=== PATIENT | female | born 1935 | race Asian ===

== ENCOUNTER → 2020-04-10 | Outpatient (CLI) | payer MEDICARE, OTHER ==
--- NOTE | 2020-04-14 10:27 | RAD ---
DATE: 04/10/2020 12:39 PM EXAM: MAMMO MADELIN SCREENING BILATERAL HISTORY: Screening COMPARISON: 12/03/2018 Bilateral CC and MLO views of the breasts were performed. Bilateral breast tomosynthesis was performed in CC and MLO projections. This study was interpreted with the benefit of Computerized Aided Detection (CAD). FINDINGS: Breast Density: HETERO The breast parenchyma Is heterogeneously dense, which could reduce sensitivity of mammography. Breast parenchyma level C No suspicious masses, microcalcifications or architectural distortion is present to suggest malignancy in either breast. The visualized axillae are unremarkable. IMPRESSION: No mammographic evidence of malignancy. BI-RADS CATEGORY: 1 NEGATIVE RECOMMENDED FOLLOW-UP: 12M 12 MONTH FOLLOW-UP Annual screening mammography is recommended, unless clinically indicated sooner based on symptoms or change in physical exam. PQRS compliance statement: Patient information was entered into a reminder system with a target due date for the next mammogram. Mammography is a sensitive method for finding small breast cancers, but it does not detect them all and is not a substitute for careful clinical examination. A negative mammogram does not negate a clinically suspicious finding and should not result in delay in biopsying a clinically suspicious abnormality. "Our facility is accredited by the [employer] Mammography Program."
== END ==
LOC: MAMMO 10:42
PROVIDERS: ATTEND Family Medicine
DX: Z12.31 Encounter for screening mammogram for malignant neoplasm of breast (principal)
CPT/HCPCS: 77063; 77067

== ENCOUNTER 2020-09-22 14:54 | Emergency (ER) | payer MEDICARE, OTHER ==
[~2020-09-22] VITALS: Ht 152.4 cm; Wt 50.0 kg
[2020-09-22 15:38] LABS: BASO % 1 % (0-3); EOS # 0.1 x10^3/uL (0.0-0.7); EOS % 1 % (0-3); HEMATOCRIT 41.1 % (36.0-47.0); HEMOGLOBIN 13.9 g/dL (12.0-15.5); LYMPH # 1.8 x10^3/uL (1.0-4.8); LYMPH % 23 % (24-48); MEAN CORPUSCULAR HEMOGLOBIN 34 pg (25-35); MEAN CORPUSCULAR HGB CONC 34 g/dL (31-37); MEAN CORPUSCULAR VOLUME 100 fL (79-100); MONO # 0.6 x10^3/uL (0.0-1.1); MONO % 8 % (0-9); NEUT # 5.1 x10^3uL (1.8-7.7); NEUT % 67 % (31-73); PLATELET COUNT 176 x10^3/uL (140-400); RED BLOOD COUNT 4.09 x10^6/uL (3.50-5.40); RED CELL DISTRIBUTION WIDTH 14.9 % (11.5-14.5); WHITE BLOOD COUNT 7.6 x10^3/uL (4.0-11.0)
[2020-09-22 15:54] LABS: CALCIUM 8.8 mg/dL (8.5-10.1); CREATININE 0.7 mg/dL (0.6-1.0); GFR 80.1; POTASSIUM 4.1 mmol/L (3.5-5.1)
--- NOTE | 2020-09-22 15:59 | RAD ---
EXAM: Chest, single view. HISTORY: Headache. COMPARISON: None. FINDINGS: A frontal view of the chest is obtained. There is no infiltrate, pleural effusion or pneumo thorax. There is a prominent cardiac silhouette. There is suspected bilateral lower lobe atelectasis or chronic interstitial changes. IMPRESSION: No acute pulmonary finding. Electronically signed by: Amaris Nicolas MD (09/22/2020 3:57 PM) [id number]
[2020-09-22 16:03] LABS: ALBUMIN 3.9 g/dL (3.4-5.0); ALBUMIN/GLOBULIN RATIO 1.3 (1.0-1.7); MAGNESIUM 2.2 mg/dL (1.8-2.4); TOTAL BILIRUBIN 0.5 mg/dL (0.2-1.0); TOTAL PROTEIN 6.9 g/dL (6.4-8.2)
--- NOTE | 2020-09-22 16:04 | RAD ---
EXAM: Head CT without contrast. HISTORY: Headache. TECHNIQUE: Computed tomographic images of the head were obtained without contrast. *One or more of the following individualized dose reduction techniques were utilized for this examina tion: 1. Automated exposure control. 2. Adjustment of the mA and/or kV according to patient size. 3. Use of iterative reconstruction technique. COMPARISON: None. FINDINGS: There is no acute or subacute extra-axial or intraparenchymal hemorrhage. There is no mass effect or midline shift. There is no hydrocephalus. There are areas of decreased attenuation within the cerebral white matter, nonspecific and likely rel ated to chronic small vessel disease. There is a fixation plate and along the left orbital rim. The mastoid air cells are clear. There is n o suspicious calvarial lesion. There is suspected bone demineralization. IMPRESSION: No acute intracranial findings. Electronically signed by: Amaris Nicolas MD (09/22/2020 4:01 PM) [id number]
--- NOTE | 2020-09-22 16:33 | PHYS DOC ---
Past History Past Medical History: Anxiety, Arthritis, Diabetes (BISHOP DUNCAN [employer] JOINTER) Past Surgical History: Hip Replacement, Other (BISHOP DUNCAN APRN) Adult General Chief Complaint Chief Complaint: HEADACHE HPI HPI Patient is a 84-year-old female patient with history of anxiety, diabetes type 2 diet-controlled, rheumatoid arthritis, who presents to the ED today complaining of 8 out of 10 left-sided headaches with blurry vision, tingling to her feet and fingers symptoms have been going on for "months". Patient denies any nausea, vomiting. Denies any fever. Denies any chest pain or shortness of breath. She states she has been seen by her own primary care doctor who did right brain MRI which was negative. She states x-rays were also done which were negative. She states she was told that maybe she has ear problems. She states she has continued to have headaches. Patient denies anything specifically exacerbating or relieving her headaches. (BISHOP DUNCAN [employer] JO[employer]) Review of Systems Review of Systems Constitutional: Denies fever or chills [] Eyes: Denies change in visual acuity, redness, or eye pain [] HENT: Denies nasal congestion or sore throat [] Respiratory: Denies cough or shortness of breath [] Cardiovascular: No additional information not addressed in HPI [] GI: Denies abdominal pain, nausea, vomiting, bloody stools or diarrhea [] : Denies dysuria or hematuria [] Musculoskeletal: Denies back pain or joint pain [] Integument: Denies rash or skin lesions [] Neurologic: Reports headaches, tingling to hands and fingers, focal weakness or sensory changes [] All other systems were reviewed and found to be within normal limits, except as documented in this note. (BISHOP DUNCAN [employer]) Allergies Allergies Allergies Coded Allergies Type Severity Reaction Last Updated Verified Penicillins Allergy Unknown 09/22/20 Yes (BISHOP DUNCAN APRN) Physical Exam Physical Exam Constitutional: Well developed, well nourished, no acute distress, non-toxic appearance. [] HENT: Normocephalic, atraumatic, bilateral external ears normal, oropharynx moist, no oral exudates, nose normal. Hard on hearing. Eyes: PERRLA, EOMI, conjunctiva normal, no discharge. [] Neck: Normal range of motion, no tenderness, supple, no stridor. [] Cardiovascular:Heart rate regular rhythm, no murmur [] Lungs & Thorax: Bilateral breath sounds clear to auscultation [] Abdomen: Bowel sounds normal, soft, no tenderness, no masses, no pulsatile masses. [] Skin: Warm, dry, no erythema, no rash. [] Back: No tenderness, no CVA tenderness. [] Extremities: No tenderness, no cyanosis, no clubbing, ROM intact, no edema. [] Neurologic: Alert and oriented X 3, normal motor function, normal sensory function, no focal deficits noted. Cranial nerves II through XII intact Psychologic: Affect normal, judgement normal, mood normal. [] (BISHOP DUNCAN [employer]) Current Patient Data Vital Signs Vital Signs Date Time Temp Pulse Resp B/P (MAP) Pulse Ox O2 Delivery O2 Flow Rate FiO2 09/22/20 15:35 65 17 158/72 (100) 98 Room Air 09/22/20 15:01 98.6 Lab Results Laboratory Tests Test 09/22/20 15:26 09/22/20 15:38 White Blood Count 7.6 x10^3/uL (4.0-11.0) Red Blood Count 4.09 x10^6/uL (3.50-5.40) Hemoglobin 13.9 g/dL (12.0-15.5) Hematocrit 41.1 % (36.0-47.0) Mean Corpuscular Volume 100 fL (79-100) Mean Corpuscular Hemoglobin 34 pg (25-35) Mean Corpuscular Hemoglobin Concent 34 g/dL (31-37) Red Cell Distribution Width 14.9 % (11.5-14.5) H Platelet Count 176 x10^3/uL (140-400) Neutrophils (%) (Auto) 67 % (31-73) Lymphocytes (%) (Auto) 23 % (24-48) L Monocytes (%) (Auto) 8 % (0-9) Eosinophils (%) (Auto) 1 % (0-3) Basophils (%) (Auto) 1 % (0-3) Neutrophils # (Auto) 5.1 x10^3uL (1.8-7.7) Lymphocytes # (Auto) 1.8 x10^3/uL (1.0-4.8) Monocytes # (Auto) 0.6 x10^3/uL (0.0-1.1) Eosinophils # (Auto) 0.1 x10^3/uL (0.0-0.7) Basophils # (Auto) 0.0 x10^3/uL (0.0-0.2) Prothrombin Time 9.6 SEC (9.4-11.4) Prothrombin Time INR 0.9 (0.9-1.1) Activated Partial Thromboplast Time 23 SEC (23-33) Sodium Level 141 mmol/L (136-145) Potassium Level 4.1 mmol/L (3.5-5.1) Chloride Level 104 mmol/L (98-107) Carbon Dioxide Level 28 mmol/L (21-32) Anion Gap 9 (6-14) Blood Urea Nitrogen 11 mg/dL (7-20) Creatinine 0.7 mg/dL (0.6-1.0) Estimated GFR (Cockcroft-Gault) 80.1 BUN/Creatinine Ratio 16 (6-20) Glucose Level 86 mg/dL (70-99) Calcium Level 8.8 mg/dL (8.5-10.1) Magnesium Level 2.2 mg/dL (1.8-2.4) Total Bilirubin 0.5 mg/dL (0.2-1.0) Aspartate Amino Transferase (AST) 25 U/L (15-37) Alanine Aminotransferase (ALT) 30 U/L (14-59) Alkaline Phosphatase 53 U/L (46-116) Creatine Kinase 52 U/L (26-192) Creatine Kinase MB (Mass) 0.8 ng/mL (0.0-3.6) Creatine Kinase MB Relative Index 1.5 % (0-4) Troponin I Quantitative < 0.017 ng/mL (0-0.055) MY-Mtn-N-Type Natriuretic Peptide 135 pg/mL (0-449) Total Protein 6.9 g/dL (6.4-8.2) Albumin 3.9 g/dL (3.4-5.0) Albumin/Globulin Ratio 1.3 (1.0-1.7) Glucose (Fingerstick) 89 mg/dL (70-99) (BISHOP DUNCAN APRN) EKG EKG [address] Mccloud sinus rhythm heart rate 64 no STEMI [] (BISHOP DUNCAN APRN) Radiology/Procedures Radiology/Procedures []PROCEDURE: CT HEAD WO CONTRAST EXAM: Head CT without contrast. HISTORY: Headache. TECHNIQUE: Computed tomographic images of the head were obtained without contrast. *One or more of the following individualized dose reduction techniques were utilized for this examination: 1. Automated exposure control. 2. Adjustment of the mA and/or kV according to patient size. 3. Use of iterative reconstruction technique. COMPARISON: None. FINDINGS: There is no acute or subacute extra-axial or intraparenchymal hemorrhage. There is no mass effect or midline shift. There is no hydrocephalus. There are areas of decreased attenuation within the cerebral white matter, nonspecific and likely related to chronic small vessel disease. There is a fixation plate and along the left orbital rim. The mastoid air cells are clear. There is no suspicious calvarial lesion. There is suspected bone demineralization. IMPRESSION: No acute intracranial findings. Electronically signed by: Amaris Reynolds MD (09/22/2020 4:01 PM) [id number] DICTATED AND SIGNED BY: AMARIS REYNOLDS MD DATE: 09/22/20 1600 CC: BISHOP DUNCAN APRN; JANEE ALBRIGHT ~MTH0 0 PROCEDURE: PORTABLE CHEST 1V EXAM: Chest, single view. HISTORY: Headache. COMPARISON: None. FINDINGS: A frontal view of the chest is obtained. There is no infiltrate, pleural effusion or pneumothorax. There is a prominent cardiac silhouette. There is suspected bilateral lower lobe atelectasis or chronic interstitial changes. IMPRESSION: No acute pulmonary finding. Electronically signed by: Amaris Reynolds MD (09/22/2020 3:57 PM) [id number] DICTATED AND SIGNED BY: AMARIS REYNOLDS MD DATE: 09/22/20 1556 CC: EMERGENCY,DEPARTMENT; BISHOP DUNCAN APRN; JANEE ALBRIGHT ~MTH0 0 (BISHOP DUNCAN APRN) Heart Score C/O Chest Pain: N/A Risk Factors: Risk Factors: DM, Current or recent (<one month) smoker, HTN, HLP, family history of CAD, obesity. Risk Scores: Risk Factors: DM, Current or recent (<one month) smoker, HTN, HLP, family history of CAD, obesity. (BISHOP DUNCAN APRN) Course & Med Decision Making Course & Med Decision Making Pertinent Labs and Imaging studies reviewed. (See chart for details) This is a 84-year-old female patient presenting to the ED today complaining of left-sided headaches intermittently for months. Also complaining of tingling to her hands and feet as well as blood prevention for months. Patient reports being seen by the PCP, MRI done of the brain which was negative. Also states they did a couple x-rays which were negative. She states she was told she has an ear problem. She states she has continued to have the symptoms. Stroke scale is negative CT of the head, chest x-ray, EKG negative. Labs are negative for any acute findings. Blood pressure 158/72. Discharge home, provided neurologist and ENT for follow-up. (BISHOP DUNCAN APRN) Dragon Disclaimer Dragon Disclaimer This electronic medical record was generated, in whole or in part, using a voice recognition dictation system. (BISHOP DUNCAN APRN) Departure Departure: Impression: Primary Impression: Chronic headaches Disposition: HOME / SELF CARE / HOMELESS Condition: STABLE Referrals: JANEE ALBRIHGT (PCP) follow up next week Patient Instructions: Headache, FAQs Additional Instructions: You were evaluated in the emergency room for headache. Your CT of the head was negative for any acute findings. Your chest x-ray is negative, your labs are negative for any acute findings. Your EKG is normal. Please follow-up with your primary care doctor as well as the provided ENT and neurologist. Take Tylenol as needed for pain. Dr. Clifford Neurologist [address], [place] [address] Dr. Chika Bravo ENT [address], [place] [address] Attending Signature Attending Signature I have reviewed the PA/TIRE MAN's note and plan of care. I was available for consultation as needed during the patient's visit in the emergency department. I agree with the clinical impression, plan, and disposition. (ERON MCCLOUD DO) Problem Qualifiers Primary Impression: Chronic headaches Headache type: unspecified Intractability: not intractable Qualified Codes: R51.9 - Headache, unspecified; G89.29 - Other chronic pain BISHOP DUNCAN APRN Sep 22, 2020 16:33 ERON MCCLOUD DO Sep 22, 2020 20:21
[2020-09-22 16:40] VITALS: BP 148/84
[2020-09-22] MEDS ORDERED: ACETAMINOPHEN 500 MG TABLET PO ONE (16:45)
[2020-09-22 17:20] LABS: BACTERIA,URINE 0 /HPF (0-FEW); BILIRUBIN,URINE NEG (NEG); CLARITY,URINE CLEAR; COLOR,URINE YELLOW; GLUCOSE,URINE NEG (NEG); NITRITE,URINE NEG (NEG); RBC,URINE 0 /HPF (0-2); UROBILINOGEN,URINE 0.2 mg/dL (0.2 mg/dL); WBC,URINE 0 /HPF (0-4)
--- NOTE | 2020-09-22 18:57 | EKG ---
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
== END 2020-09-22 16:45 | disposition home or self-care (01) ==
LOC: ER 14:54
DX: G89.29 Other chronic pain (principal); R51.9 Headache, unspecified; R20.2 Paresthesia of skin; F41.9 Anxiety disorder, unspecified; E11.9 Type 2 diabetes mellitus without complications; M06.9 Rheumatoid arthritis, unspecified; Z88.0 Allergy status to penicillin
CPT/HCPCS: 36415; 70450; 71045; 80053; 81001; 82553; 82947; 83735; 83880; 84443; 84484; 85025; 85610; 85730; 93005; 99285-25

== ENCOUNTER → 2021-01-01 | Outpatient (CLI) | payer MEDICARE, OTHER ==
--- NOTE | 2021-01-01 16:20 | RAD ---
XR CHEST 2V History: Reason: POSITIVE TB SKIN TEST / Spl. Instructions: / History: Comparison: September 22, 2020 Findings: Hyperinflation. Bibasilar reticular interstitial opacities. No pleural effusion. No pneumothorax. No evidence of upper lobe opacities to suggest primary or latent tuberculosis. Impression: 1. Hyperinflation with bibasilar reticular opacities, may represent chronic interstitial changes. Electronically signed by: Abel Muniz DO (01/01/2021 4:17 PM) [id number]
== END ==
LOC: RAD 12:40
PROVIDERS: ATTEND Internal Medicine Rheumatology
DX: R76.11 Nonspecific reaction to tuberculin skin test without active tuberculosis (principal)
CPT/HCPCS: 71046

== ENCOUNTER 2021-03-11 14:36 | Emergency (ER) | payer MEDICARE, OTHER ==
[~2021-03-11] VITALS: Ht 152.4 cm; Wt 50.0 kg
[2021-03-11 15:03] VITALS: BP 153/74
--- NOTE | 2021-03-11 15:37 | PHYS DOC ---
Past History Past Medical History: Anxiety, Arthritis, Diabetes Past Surgical History: Hip Replacement, Other Alcohol Use: None Adult General Chief Complaint Chief Complaint: DIFFICULTY SWALLOWING HPI HPI Patient is a [age] year old [sex] who presents with [] Review of Systems Review of Systems Fourteen body systems of review of systems have been reviewed. See HPI for pertinent positives and negative responses, other raza all other systems are n egative, non-pertinent or non-contributory Allergies Allergies Allergies Coded Allergies Type Severity Reaction Last Updated Verified Penicillins Allergy Unknown 09/22/20 Yes Physical Exam Physical Exam Constitutional: Well developed, well nourished, no acute distress, non-toxic appearance. [] HENT: Normocephalic, atraumatic, bilateral external ears normal, oropharynx moist, no oral exudates, nose normal. [] Eyes: PERRLA, EOMI, conjunctiva normal, no discharge. [] Neck: Normal range of motion, no tenderness, supple, no stridor. [] Cardiovascular:Heart rate regular rhythm, no murmur [] Lungs & Thorax: Bilateral breath sounds clear to auscultation [] Abdomen: Bowel sounds normal, soft, no tenderness, no masses, no pulsatile masses. [] Skin: Warm, dry, no erythema, no rash. [] Back: No tenderness, no CVA tenderness. [] Extremities: No tenderness, no cyanosis, no clubbing, ROM intact, no edema. [] Neurologic: Alert and oriented X 3, normal motor function, normal sensory function, no focal deficits noted. [] Psychologic: Affect normal, judgement normal, mood normal. [] Current Patient Data Vital Signs Vital Signs Date Time Temp Pulse Resp B/P (MAP) Pulse Ox O2 Delivery O2 Flow Rate FiO2 03/11/21 15:03 97.9 72 16 153/74 (100) 96 Room Air EKG EKG [] Radiology/Procedures Radiology/Procedures [] Heart Score Risk Factors: Risk Factors: DM, Current or recent (<one month) smoker, HTN, HLP, family history of CAD, obesity. Risk Scores: Risk Factors: DM, Current or recent (<one month) smoker, HTN, HLP, family history of CAD, obesity. Course & Med Decision Making Course & Med Decision Making Pertinent Labs and Imaging studies reviewed. (See chart for details) [] Dragon Disclaimer Dragon Disclaimer This electronic medical record was generated, in whole or in part, using a voice recognition dictation system. Departure Departure: Impression: Primary Impression: Dysphagia Disposition: HOME / SELF CARE / HOMELESS Condition: STABLE Referrals: JNAEE ALBRIGHT (PCP) Patient Instructions: Dysphagia Additional Instructions: As discussed prior to ER departure, your vitals and physical exam were nonconcerning for any emergent or surgical issues. You have had extensive outpatient work-up recently for your dysphagia that is a chronic issue. There are no concerning signs or symptoms today prompting need for further diagnostic work-up, intervention or hospitalization. As disclosed, it is worth contacting your primary care physicians and relations coordinator as you would benefit from barium swallow study and likely endoscopy for repeat esophageal sphincter balloon. It appears these procedures are scheduled next week. In the meantime, please continue to adhere to a mechanical soft diet as tolerated with preference for liquids and nutrient rich beverages such as boost or Ensure s hakes. If any concerning signs or symptoms recur prior to outpatient follow-up please do not hesitate to come back for repeat evaluation. It was pleasure to take care of you and I wish you the best going WILLAM CHAMBERS DO Mar 11, 2021 15:37
== END 2021-03-11 16:42 | disposition home or self-care (01) ==
LOC: ER 14:36
DX: R13.10 Dysphagia, unspecified (principal); F41.9 Anxiety disorder, unspecified; M19.90 Unspecified osteoarthritis, unspecified site; E11.9 Type 2 diabetes mellitus without complications; Z88.0 Allergy status to penicillin
CPT/HCPCS: 99281

== ENCOUNTER → 2021-04-13 | Outpatient (CLI) | payer MEDICARE, OTHER ==
--- NOTE | 2021-04-13 14:08 | RAD ---
BILATERAL SCREENING MAMMOGRAM History: Routine screening. Comparison: 04/10/2020. Technique: Routine 2D and 3D tomosynthesis digital mammogram views were obtained bilaterally. Interpr etation was assisted with the use of computer-aided detection. Findings: Breast Tissue Density B : There are scattered areas of fibroglandular density. There are no dominant masses, suspicious microcalcifications, or architectural distortion. IMPRESSION: No mammographic evidence of malignancy. Recommend routine screening mammography in one year. BI-RADS category 1: Negative. Patient information is entered into the reminder system with a target due date for the next screening mammogram. "Our facility is accredited by the [employer] Mammography Program." Electronically signed by: JOE APODACA MD (04/13/2021 2:05 PM) [id number]
== END ==
LOC: MAMMO 10:46
PROVIDERS: ATTEND Family Medicine
DX: Z12.31 Encounter for screening mammogram for malignant neoplasm of breast (principal)
CPT/HCPCS: 77063; 77067

== ENCOUNTER → 2021-04-23 | Outpatient (CLI) | payer MEDICARE, OTHER ==
[~2021-04-23] MED LIST: IOHEXOL 240 MG/ML 50ML VIAL. PO ONE
[2021-04-23] MEDS: IOHEXOL 300 MG/ML 75 ML VIAL. IV ONE (10:02)
--- NOTE | 2021-04-23 12:08 | RAD ---
PQRS Compliance Statement: One or more of the following individualized dose reduction techniques were utilized for this examinat ion: 1. Automated exposure control 2. Adjustment of the mA and/or kV according to patient size 3. Use of iterative reconstruction technique Exam performed: CT abdomen and pelvis with contrast HISTORY: Pelvic pain for 2 weeks, history of rectal prolapse. DATE OF SERVICE: 04/23/2021. COMPARISON: None available TECHNIQUE: Contiguous helical acquisitions are obtained through the abdomen and pelvis during intrave nous administration of 60 cc of Omnipaque 300. Sagittal and coronal reformatted images are obtained a nd reviewed. FINDINGS: Mild dependent bibasilar atelectasis is noted. The visualized heart is normal. Mild hepatic steatosis, no focal lesions. The spleen and pancreas appear normal. Gallbladder is diste nded. Both adrenal glands and bilateral kidneys are normal in size with symmetric excretion of contra st via both kidneys. There is no hydronephrosis or nephrolithiasis. Aorta is normal in caliber with m ild atheromatous calcification. The small and large bowel loops are nondilated and unremarkable. Appe ndix is not clearly seen. No inflammatory changes are seen in the right lower quadrant. The urinary bladder is distended. Hysterectomy. No adnexal masses seen. There is scattered stool in t he rectosigmoid region. Rectum appears normal. Interrogation of bone windows demonstrates no bony abnormalities. IMPRESSION: No acute intra-abdominal or pelvic process detected. Scattered stool in the rectosigmoid region. Correlate clinically for constipation. Electronically signed by: Annabelle Black MD (04/23/2021 12:06 PM) [facility]
== END ==
LOC: CT 09:04
PROVIDERS: ATTEND Family Medicine
DX: K76.0 Fatty (change of) liver, not elsewhere classified (principal); K82.8 Other specified diseases of gallbladder; K59.00 Constipation, unspecified; I70.0 Atherosclerosis of aorta; J98.11 Atelectasis
CPT/HCPCS: 74177; Q9967

== ENCOUNTER 2021-07-21 11:55 | Observation (INO) | payer MEDICARE, OTHER ==
[~2021-07-21] VITALS: Ht 152.4 cm; Wt 47.0 kg
--- NOTE | 2021-07-21 12:12 | EKG ---
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
--- NOTE | 2021-07-21 12:22 | PHYS DOC ---
Past History Past Medical History: Anxiety, Arthritis, Diabetes Additional Past Medical Histor: NEUROPATHY (LAKHWINDER HERNANDEZ APRN) Past Surgical History: Hip Replacement, Hysterectomy, Oophorectomy, Other Additional Past Surgical Histo: RECTAL SURGERIES, NON CANCEROUS TUMOR BEHIND LEFT EYE (LAKHWINDER HERNANDEZ APRN) Alcohol Use: None (LAKHWINDER HERNANDEZ APRN) General Adult EDM: Chief Complaint: CHEST PAIN HPI: HPI: Patient is an 85-year-old female who presents to the emergency department with her DPOA for complaints of chest pain. Patient reports that when she was sleeping on Monday she started having sternal chest pain. She describes it as a heaviness and rates it 8 out of 10. The pain is intermittent. She is taking heartburn medication and Tylenol without relief in her symptoms. She reports it is worse when she is laying down. Patient denies any shortness of breath, nausea, vomiting, fever. She reports a chronic cough. Patient has a history of neuropathy, diabetes, esophageal problems with dysphagia, chronic ear pain and d izziness. (LAKHWINDER HERNANDEZ APRN) Review of Systems: Review of Systems: Constitutional: See HPI HENT: See HPI Respiratory: See HPI Cardiovascular: See HPI GI: See HPI Neurologic: See HPI Psychiatric: See HPI (LAKHWINDER HERNANDEZ APRN) Allergies: Allergies: Allergies Coded Allergies Type Severity Reaction Last Updated Verified Penicillins Allergy Unknown 07/21/21 Yes codeine Allergy Unknown Rash 07/21/21 Yes (LAKHWINDER HERNANDEZ APRN) Physical Exam: PE: Constitutional: Well developed, well nourished, no acute distress, non-toxic appearance. [] HENT: Normocephalic, atraumatic, bilateral external ears normal, oropharynx moist, no oral exudates, nose normal. [] Eyes: PERRLA, EOMI, conjunctiva normal, no discharge. [] Neck: Normal range of motion, no tenderness, supple, no stridor. [] Cardiovascular:Heart rate regular rhythm, no murmur [] Lungs & Thorax: Bilateral breath sounds clear to auscultation [] Abdomen: Bowel sounds normal, soft, no tenderness, no masses, no pulsatile masses. [] Skin: Warm, dry, no erythema, no rash. [] Back: No tenderness, no CVA tenderness. [] Extremities: No tenderness, no cyanosis, no clubbing, ROM intact, no edema. [] Neurologic: Alert and oriented X 3, normal motor function, normal sensory function, no focal deficits noted. [] Psychologic: Affect normal, judgement normal, mood normal. [] (LAKHWINDER HERNANDEZ APRN) Current Patient Data: Labs: Laboratory Tests Test 07/21/21 12:30 White Blood Count 8.6 x10^3/uL Red Blood Count 4.11 x10^6/uL Hemoglobin 13.7 g/dL Hematocrit 41.5 % Mean Corpuscular Volume 101 fL Mean Corpuscular Hemoglobin 33 pg Mean Corpuscular Hemoglobin Concent 33 g/dL Red Cell Distribution Width 14.6 % Platelet Count 171 x10^3/uL Neutrophils (%) (Auto) 87 % Lymphocytes (%) (Auto) 9 % Monocytes (%) (Auto) 3 % Eosinophils (%) (Auto) 0 % Basophils (%) (Auto) 0 % Neutrophils # (Auto) 7.5 x10^3uL Lymphocytes # (Auto) 0.8 x10^3/uL Monocytes # (Auto) 0.3 x10^3/uL Eosinophils # (Auto) 0.0 x10^3/uL Basophils # (Auto) 0.0 x10^3/uL Sodium Level 141 mmol/L Potassium Level 4.0 mmol/L Chloride Level 107 mmol/L Carbon Dioxide Level 28 mmol/L Anion Gap 6 Blood Urea Nitrogen 9 mg/dL Creatinine 0.7 mg/dL Estimated GFR (Cockcroft-Gault) 79.9 BUN/Creatinine Ratio 13 Glucose Level 110 mg/dL Calcium Level 8.6 mg/dL Total Bilirubin 0.5 mg/dL Aspartate Amino Transf (AST/SGOT) 15 U/L Alanine Aminotransferase (ALT/SGPT) 20 U/L Alkaline Phosphatase 43 U/L Troponin I High Sensitivity 6 ng/L Total Protein 6.4 g/dL Albumin 3.5 g/dL Albumin/Globulin Ratio 1.2 Current Medications Medications (Trade) Dose Ordered Sig/Reginaldo Route PRN Reason Start Time Stop Time Status Last Admin Dose Admin Aspirin (Aspirin Chewable) 324 mg 1X ONCE PO 07/21/21 12:45 07/21/21 12:46 DC 07/21/21 12:22 Nitroglycerin (Nitrostat) 0.4 mg PRN Q5MIN PRN SL CP RATING > 10 07/21/21 12:30 07/22/21 12:29 07/21/21 12:38 Sodium Chloride 1,000 ml @ 1,000 mls/hr Q1H IV 07/21/21 12:30 07/21/21 13:29 DC 07/21/21 12:31 Fentanyl Citrate (Fentanyl 2ml Vial) 50 mcg 1X ONCE IVP 07/21/21 13:15 07/21/21 13:16 DC 07/21/21 12:48 Vital Signs: Vital Signs Date Time Temp Pulse Resp B/P (MAP) Pulse Ox O2 Delivery O2 Flow Rate FiO2 07/21/21 12:04 98.1 67 18 156/82 (106) 97 Room Air (LAKHWINDER HERNANDEZ APRN) EKG: EKG: EKG performed by ER staff at 1202 shows sinus rhythm with a rate of 71, QTc is 454, no STEMI read by Dr. Lorenzana at 1206 [] (LAKHWINDER HERNANDEZ APRN) Radiology/Procedures: Radiology/Procedures: []REASON: chest pain PROCEDURE: PORTABLE CHEST 1V AP chest. HISTORY: Chest pain AP view was taken of the chest. There are slight chronic interstitial changes in the lung bases similar to an old study. There are no acute infiltrates. There is no effusion. The heart is normal in size. IMPRESSION: 1. No acute infiltrates. Electronically signed by: Joselito Hannon MD (07/21/2021 1:08 PM) [id number] DICTATED AND SIGNED BY: JOSELITO HANNON MD DATE: 07/21/21 1308 CC: LAKHWINDER HERNANDEZ APRN; JANEE ALBRIGHT ~ (LAKHWINDER HERNANDEZ APRN) Heart Score: C/O Chest Pain: Yes HEART Score for Chest Pain: HEART Score for Chest Pain Response (Comments) Value History Moderately Suspicious 1 ECG Normal 0 Age > 65 2 Risk Factors 1 or 2 Risk Factors 1 Troponin < Normal Limit 0 Total 4 Risk Factors: Risk Factors: DM, Current or recent (<one month) smoker, HTN, HLP, family history of CAD, obesity. Risk Scores: Score 0 - 3: 2.5% MACE over next 6 weeks - Discharge Home Score 4 - 6: 20.3% MACE over next 6 weeks - Admit for Clinical Observation Score 7 - 10: 72.7% MACE over next 6 weeks - Early Invasive Strategies (LAKHWINDER HERNANDEZ APRN) Course & Med Decision Making: Course & Med Decision Making Pertinent Labs and Imaging studies reviewed. (See chart for details) [] Patient presents to the emergency department for chest pain. She is reporting sternal chest pain. Patient's risk factors are diabetes. Work-up in the ER consisted of blood work including troponin, EKG and chest x-ray. Patient will be treated with IV fluids, aspirin and nitroglycerin. Blood work is unremarkable, she did not have an elevated troponin. Her chest x-ray did not show any acute findings. Patient continues to complain of pain after 2 doses of nitroglycerin therefore she was given a dose of fentanyl. Patient reports that the fentanyl did help her pain but she is still complaining of sternal chest pain. Patient's heart score is 4. I discussed patient's case with Dr. Bender who agreed to admit the patient under his services for ACS rule out for serial enzymes. I discussed this with patient and her DPOA and her care plan she is agreeable. (LAKHWINDER HERNANDEZ APRN) Dragon Disclaimer: Dragon Disclaimer: This electronic medical record was generated, in whole or in part, using a voice recognition dictation system. (LAKHWINDER HERNANDEZ APRN) Attending Co-Sign The patient was seen and interviewed as well as examined at the bedside. The chart was reviewed. The case was discussed. Agree with the plan of care. (MARISEL LORENZANA DO) Departure Departure: Impression: Primary Impression: Chest pain Qualified Codes: R07.9 - Chest pain, unspecified Disposition: ADMITTED INPATIENT Admitting Physician: Yuko Bender (LAKHWINDER HERNANDEZ APRN) Condition: STABLE Referrals: JANEE ALBRIGHT (PCP) LAKHWINDER HERNANDEZ APRN July 21, 2021 12:22 MARISEL LORENZANA DO July 22, 2021 18:10
[2021-07-21] MEDS: NITROGLYCERIN SUBLINGUAL 0.4 MG BOTTLE OF 25. SL PRN ×2 (12:24→12:38)
[2021-07-21] MEDS ORDERED: IV NORMAL SALINE 1,000ML 1,000 ML IV SCH (12:30)
[2021-07-21] MEDS ORDERED: ASPIRIN CHEWABLE 81 MG TABLET. PO ONE (12:45)
[2021-07-21 12:47] LABS: BASO % 0 % (0-3); EOS % 0 % (0-3); HEMATOCRIT 41.5 % (36.0-47.0); HEMOGLOBIN 13.7 g/dL (12.0-15.5); LYMPH # 0.8 x10^3/uL (1.0-4.8); LYMPH % 9 % (24-48); MEAN CORPUSCULAR HEMOGLOBIN 33 pg (25-35); MEAN CORPUSCULAR HGB CONC 33 g/dL (31-37); MEAN CORPUSCULAR VOLUME 101 fL (79-100); MONO # 0.3 x10^3/uL (0.0-1.1); MONO % 3 % (0-9); NEUT # 7.5 x10^3uL (1.8-7.7); NEUT % 87 % (31-73); PLATELET COUNT 171 x10^3/uL (140-400); RED BLOOD COUNT 4.11 x10^6/uL (3.50-5.40); RED CELL DISTRIBUTION WIDTH 14.6 % (11.5-14.5); WHITE BLOOD COUNT 8.6 x10^3/uL (4.0-11.0)
--- NOTE | 2021-07-21 13:10 | RAD ---
AP chest. HISTORY: Chest pain AP view was taken of the chest. There are slight chronic interstitial changes in the lung bases simil ar to an old study. There are no acute infiltrates. There is no effusion. The heart is normal in size . IMPRESSION: 1. No acute infiltrates. Electronically signed by: Joselito Hannon MD (07/21/2021 1:08 PM) [id number]
[2021-07-21 13:19] LABS: CALCIUM 8.6 mg/dL (8.5-10.1); CREATININE 0.7 mg/dL (0.6-1.0); GFR 79.9
[2021-07-21 13:24] LABS: ALBUMIN 3.5 g/dL (3.4-5.0); ALBUMIN/GLOBULIN RATIO 1.2 (1.0-1.7); TOTAL BILIRUBIN 0.5 mg/dL (0.2-1.0); TOTAL PROTEIN 6.4 g/dL (6.4-8.2)
[2021-07-21 15:00] VITALS: BP 159/64
[2021-07-21] MEDS ORDERED: HYDR30CR33 RC (18:45)
[2021-07-21] MEDS ORDERED: LORA-254 PO (18:45)
[2021-07-21] MEDS ORDERED: CHOL100014 PO (18:45)
[2021-07-21] MEDS ORDERED: LINA145C PO (18:45)
[2021-07-21] MEDS ORDERED: PRED2.5T PO (18:45)
[2021-07-21] MEDS ORDERED: LIDO700A21 TP (18:45)
[2021-07-21] MEDS ORDERED: IBUP-1673 PO (18:45)
[2021-07-21] MEDS ORDERED: DOCU-109 PO (18:45)
[2021-07-21] MEDS ORDERED: ASCO500C9 PO (18:45)
[2021-07-21] MEDS ORDERED: METH2.5T PO (18:45)
[2021-07-21] MEDS ORDERED: FAMO-63 PO (18:45)
[2021-07-21] MEDS ORDERED: FOLI0.8C PO (18:45)
[2021-07-21] MEDS ORDERED: [UNRECOGNIZED DRUG - CODE] TP (18:45)
[2021-07-21] MEDS ORDERED: METO25TA2 PO (18:45)
[2021-07-21] MEDS ORDERED: ATOR20TA PO (18:45)
[2021-07-21] MEDS ORDERED: CALC-56 PO (18:45)
[2021-07-21] MEDS ORDERED: GABA-585 PO (18:45)
--- NOTE | 2021-07-21 18:45 | NUR ---
PT WAS ADMITTED TO ROOM 109 ON PREVIOUS SHIFT, REPORT RECEIVED FROM FAN OBRIEN. PT HERE FOR C/O CP R/O ACS. PT CURRENTLY DENIES AND PAIN OR DISCOMFORT, RESTING IN BED WATCHING TV. CALL LIGHT IN REACH.
[2021-07-21] MEDS ORDERED: DOCUSATE SODIUM 100 MG CAPSULE PO PRN (19:15)
[2021-07-21] MEDS ORDERED: HYDROCORTISONE 1% LOTION BOTTLE. TP PRN (19:15)
[2021-07-21] MEDS ORDERED: MELATONIN 3 MG TABLET PO PRN (19:15)
[2021-07-21] MEDS ORDERED: LORazepam 1 MG TABLET PO PRN (19:15)
[2021-07-21] MEDS ORDERED: FOLI0.8T5 PO (19:23)
[2021-07-21] MEDS ORDERED: PRED5TAB PO (19:23)
[2021-07-21] MEDS ORDERED: OLOP2.5D12 EACHEYE (19:25)
[2021-07-21 19:44] VITALS: BP 158/79
[2021-07-21] MEDS ORDERED: IBUPROFEN 400 MG TABLET. PO PRN (20:00)
[2021-07-21] MEDS: GABAPENTIN 100 MG CAPSULE. PO SCH (20:37)
[2021-07-21] MEDS ORDERED: HYDROCORTISONE RC SCH (21:00)
[2021-07-21] MEDS ORDERED: PRAMOXINE RC SCH (21:00)
[2021-07-21] MEDS ORDERED: FAMOTIDINE 20 MG TABLET PO SCH (21:00)
--- NOTE | 2021-07-21 21:42 | NUR ---
PT'S DPOA CALLED TO CHECK ON PT, UPDATE GIVEN. SUSAN WILL CALL BACK IN AM TO CHECK ON COVID RESULT PRIOR TO VISITING.
[2021-07-21 23:07] VITALS: BP 130/74
[2021-07-22 06:04] LABS: BASO % 1 % (0-3); EOS # 0.1 x10^3/uL (0.0-0.7); EOS % 1 % (0-3); HEMATOCRIT 39.6 % (36.0-47.0); HEMOGLOBIN 13.1 g/dL (12.0-15.5); LYMPH # 1.5 x10^3/uL (1.0-4.8); LYMPH % 20 % (24-48); MEAN CORPUSCULAR HEMOGLOBIN 33 pg (25-35); MEAN CORPUSCULAR HGB CONC 33 g/dL (31-37); MEAN CORPUSCULAR VOLUME 101 fL (79-100); MONO # 0.7 x10^3/uL (0.0-1.1); MONO % 9 % (0-9); NEUT % 69 % (31-73); PLATELET COUNT 162 x10^3/uL (140-400); RED BLOOD COUNT 3.94 x10^6/uL (3.50-5.40); RED CELL DISTRIBUTION WIDTH 14.3 % (11.5-14.5); WHITE BLOOD COUNT 7.2 x10^3/uL (4.0-11.0)
[2021-07-22 06:15] VITALS: BP 149/70
[2021-07-22 06:33] LABS: CALCIUM 8.3 mg/dL (8.5-10.1); CREATININE 0.7 mg/dL (0.6-1.0); GFR 79.9; POTASSIUM 3.6 mmol/L (3.5-5.1); TOTAL BILIRUBIN 0.5 mg/dL (0.2-1.0)
[2021-07-22] MEDS: LUBIPROSTONE 24 MCG CAPSULE PO SCH ×2 (07:57→16:59)
[2021-07-22] MEDS: CALCIUM CARB/VIT D3 500/200 TABLET PO SCH ×2 (07:58→17:00)
[2021-07-22] MEDS: GABAPENTIN 100 MG CAPSULE. PO SCH ×2 (08:00→14:01)
--- NOTE | 2021-07-22 08:20 | PDOC2 ---
MADDY ARNOLD DANIEL 07/22/21 0820: CARDIAC CONSULT DATE OF CONSULT DOS: DATE: 07/22/21 TIME: 08:15 REASON FOR CONSULT Reason for Consult Chest pain REFERRING PHYSICIAN Referring Physician Dr. Bender SOURCE Source: Chart review, Patient HPI History of Present Illness This is an 85 yo female who presented secondary to chest pain. Patient reports intermittent tightness in her central chest since Monday. No associated dizziness, diaphoresis, or palpitations. Pain does not radiate. Seems to be worse with laying down. Patient does have a history of GERD and has recently been constipated. This her pain may be related to new constipation medication. Patient was unable to recall name of this. She reports getting it OTC at [facility] (formerly known as [facility]). No prior cardiac disease or cardiac workup. Pain is resolved this morning. PAST MEDICAL HISTORY Cardiovascular: HTN, hyperipidemia Pulmonary: COPD CENTRAL NERVOUS SYSTEM: Periperal neuropathy GI: GERD Psych: Anxiety, Depression Musculoskeletal: Osteoarthritis Endocrine: Diabetes PAST SURGICAL HISTORY Past Surgical History: Total hip replacement (right ) FAMILY HISTORY Family History: Hypertension SOCIAL HISTORY Smoke: No ALCOHOL: none Drugs: None Lives: with Family CURRENT MEDICATIONS Current Medications Current Medications Aspirin (Aspirin Chewable) 324 mg 1X ONCE PO Last administered on 07/21/21at 12:22; Start 07/21/21 at 12:45; Stop 07/21/21 at 12:46; Status DC Nitroglycerin (Nitrostat) 0.4 mg PRN Q5MIN PRN SL CP RATING > 1/10 Last administered on 07/21/21at 12:38; Start 07/21/21 at 12:30; Stop 07/22/21 at 12:29 Sodium Chloride 1,000 ml @ 1,000 mls/hr Q1H IV Last administered on 07/21/21at 12:31; Start 07/21/21 at 12:30; Stop 07/21/21 at 13:29; Status DC Fentanyl Citrate (Fentanyl 2ml Vial) 50 mcg 1X ONCE IVP Last administered on 07/21/21at 12:48; Start 07/21/21 at 13:15; Stop 07/21/21 at 13:16; Status DC Fentanyl Citrate (Fentanyl 2ml Vial) 50 mcg 1X PRN IVP CHEST PAIN Last administered on 07/21/21at 17:26; Start 07/21/21 at 13:45 Melatonin (Melatonin) 6 mg PRN QHS PRN PO INSOMNIA Last administered on 07/21/21at 20:38; Start 07/21/21 at 19:15 Atorvastatin Calcium (Lipitor) 20 mg DAILY PO Last administered on 07/22/21at 08:00; Start 07/22/21 at 09:00 Calcium/Vitamin D (Oscal D 500mg/ 200uts) 1 tab BIDWMEALS PO Last administered on 07/22/21at 07:58; Start 07/22/21 at 08:00 Docusate Sodium (Colace) 100 mg PRN BID PRN PO CONSTIPATION; Start 07/21/21 at 19:15 Famotidine (Pepcid) 20 mg HS PO Last administered on 07/21/21at 20:37; Start 07/21/21 at 21:00 Gabapentin (Neurontin) 100 mg TID PO Last administered on 07/22/21at 08:00; Start 07/21/21 at 21:00 Hydrocortisone (Cortizone-10) 1 ya PRN BID PRN TP RASH; Start 07/21/21 at 19:15 Ibuprofen (Motrin) 400 mg PRN Q6HRS PRN PO PAIN Last administered on 07/21/21at 20:37; Start 07/21/21 at 20:00 Lidocaine (Lidoderm) 1 patch DAILY TP ; Start 07/22/21 at 09:00 Lorazepam (Ativan) 1 mg PRN BID PRN PO ANXIETY; Start 07/21/21 at 19:15 Methotrexate (Rheumatrex) 20 mg QSU PO ; Start 07/25/21 at 16:00 Metoprolol Succinate (Toprol Xl) 25 mg DAILY PO Last administered on 07/22/21at 08:00; Start 07/22/21 at 09:00 Prednisone (Prednisone) 5 mg DAILY PO Last administered on 07/22/21at 08:00; Start 07/22/21 at 09:00 Ascorbic Acid (Vitamin C) 1,000 mg DAILY PO Last administered on 07/22/21at 07:59; Start 07/22/21 at 09:00 Vitamin D (Vitamin D3) 1,000 unit DAILY PO Last administered on 07/22/21 07:58; Start 07/22/21 at 09:00 Folic Acid (Folic Acid) 1 mg DAILY PO Last administered on 5/12/22at 07:57; Start 07/22/21 at 09:00 Non-Formulary Medication (Hydrocortisone/ Pramoxine (Hydrocort-Pramoxine 2.5-1% Crm)) 1 ya BID RC ; Start 07/21/21 at 21:00; Status UNV Lubiprostone (Amitiza) 24 mcg BIDWMEALS PO Last administered on 07/22/21at 07:57; Start 07/22/21 at 08:00 Ketotifen Fumarate (Zaditor) 1 drop DAILY OU ; Start 07/22/21 at 09:00 Active Scripts Active Reported Pataday (Olopatadine Hcl) 2.5 Ml Drops 1 Drop EACHEYE DAILY Prednisone 5 Mg Tablet 5 Mg PO DAILY Folic Acid 0.8 Mg Tablet 1 Mg PO DAILY Lidocaine PATCH (Lidocaine) 1 Each Adh..patch 1 Each TP DAILY REMOVE AFTER 12 HOURS APPLY 1/2 PATCH TO BOTTOM OF EACH FOOT Calcium 500 + Vit D 200 Caplet (Calcium Carbonate/Vitamin D3) 1 Each Tablet 1 Tab PO BIDWMEALS 30 Days Methotrexate (Methotrexate Sodium) 2.5 Mg Tablet 2.5 Mg PO QSU Colace (Docusate Sodium) 100 Mg Capsule 100 Mg PO BID PRN Gabapentin (Gabapentin) 100 Mg Capsule 100 Mg PO TID Ibuprofen 200 Mg Tablet 400 Mg PO PRN Q6HRS PRN Pepcid (Famotidine) 20 Mg Tablet 20 Mg PO HS Lipitor (Atorvastatin Calcium) 20 Mg Tablet 20 Mg PO DAILY Vitamin C (Ascorbic Acid) 500 Mg Capsule 2 Cap PO DAILY 28 Days Vitamin D3 (Cholecalciferol (Vitamin D3)) 25 Mcg Capsule 25 Mcg PO DAILY Hydrocort-Pramoxine 2.5-1% Crm (Hydrocortisone/Pramoxine) 30 Gm Cream.appl 1 Ya RC BID 7 Days Hydrocortisone 114 Gm Lotion 1 Ya TP BID PRN Toprol Xl (Metoprolol Succinate) 25 Mg Tab.er.24h 25 Mg PO DAILY Linzess (Linaclotide) 145 Mcg Capsule 145 Mcg PO DAILY Ativan (Lorazepam) 1 Mg Tablet 1 Tab PO BID PRN MDD 2 Tablet(s) 30 Days ALLERGIES Allergies: Coded Allergies: Penicillins (Verified Allergy, Unknown, 07/21/21) aspirin (Verified Allergy, Unknown, 07/22/21) codeine (Verified Allergy, Unknown, Rash, 07/21/21) ROS Review of Systems 14 point ROS conducted with pertinent positives noted above in HPI PHYSICAL EXAM General: Alert, Oriented X3, Cooperative, No acute distress HEENT: Atraumatic Lungs: Clear to auscultation Heart: Regular rate Abdomen: Soft, No tenderness Extremities: No edema, Normal pulses Skin: No rashes, No breakdown Neuro: Normal speech, Sensation intact Psych/Mental Status: Mental status NL, Mood NL MUSCULOSKELETAL: Osteoarthritic changes both hands VITALS Vital Signs Vital Signs Date Time Temp Pulse Resp B/P (MAP) Pulse Ox O2 Delivery O2 Flow Rate FiO2 07/22/21 08:00 70 149/70 07/22/21 06:15 97.7 18 95 Room Air LABS LABS Laboratory Tests Test 07/21/21 12:30 07/21/21 14:00 07/21/21 15:28 07/21/21 18:11 White Blood Count 8.6 x10^3/uL (4.0-11.0) Red Blood Count 4.11 x10^6/uL (3.50-5.40) Hemoglobin 13.7 g/dL (12.0-15.5) Hematocrit 41.5 % (36.0-47.0) Mean Corpuscular Volume 101 fL (79-100) Mean Corpuscular Hemoglobin 33 pg (25-35) Mean Corpuscular Hemoglobin Concent 33 g/dL (31-37) Red Cell Distribution Width 14.6 % (11.5-14.5) Platelet Count 171 x10^3/uL (140-400) Neutrophils (%) (Auto) 87 % (31-73) Lymphocytes (%) (Auto) 9 % (24-48) Monocytes (%) (Auto) 3 % (0-9) Eosinophils (%) (Auto) 0 % (0-3) Basophils (%) (Auto) 0 % (0-3) Neutrophils # (Auto) 7.5 x10^3uL (1.8-7.7) Lymphocytes # (Auto) 0.8 x10^3/uL (1.0-4.8) Monocytes # (Auto) 0.3 x10^3/uL (0.0-1.1) Eosinophils # (Auto) 0.0 x10^3/uL (0.0-0.7) Basophils # (Auto) 0.0 x10^3/uL (0.0-0.2) Sodium Level 141 mmol/L (136-145) Potassium Level 4.0 mmol/L (3.5-5.1) Chloride Level 107 mmol/L (98-107) Carbon Dioxide Level 28 mmol/L (21-32) Anion Gap 6 (6-14) Blood Urea Nitrogen 9 mg/dL (7-20) Creatinine 0.7 mg/dL (0.6-1.0) Estimated GFR (Cockcroft-Gault) 79.9 BUN/Creatinine Ratio 13 (6-20) Glucose Level 110 mg/dL (70-99) Calcium Level 8.6 mg/dL (8.5-10.1) Total Bilirubin 0.5 mg/dL (0.2-1.0) Aspartate Amino Transf (AST/SGOT) 15 U/L (15-37) Alanine Aminotransferase (ALT/SGPT) 20 U/L (14-59) Alkaline Phosphatase 43 U/L (46-116) Troponin I High Sensitivity 6 ng/L (4-50) 7 ng/L (4-50) 7 ng/L (4-50) Total Protein 6.4 g/dL (6.4-8.2) Albumin 3.5 g/dL (3.4-5.0) Albumin/Globulin Ratio 1.2 (1.0-1.7) SARS-CoV-2 Antigen (Rapid) Negative (NEGATIVE) Test 07/22/21 05:42 White Blood Count 7.2 x10^3/uL (4.0-11.0) Red Blood Count 3.94 x10^6/uL (3.50-5.40) Hemoglobin 13.1 g/dL (12.0-15.5) Hematocrit 39.6 % (36.0-47.0) Mean Corpuscular Volume 101 fL (79-100) Mean Corpuscular Hemoglobin 33 pg (25-35) Mean Corpuscular Hemoglobin Concent 33 g/dL (31-37) Red Cell Distribution Width 14.3 % (11.5-14.5) Platelet Count 162 x10^3/uL (140-400) Neutrophils (%) (Auto) 69 % (31-73) Lymphocytes (%) (Auto) 20 % (24-48) Monocytes (%) (Auto) 9 % (0-9) Eosinophils (%) (Auto) 1 % (0-3) Basophils (%) (Auto) 1 % (0-3) Neutrophils # (Auto) 5.0 x10^3uL (1.8-7.7) Lymphocytes # (Auto) 1.5 x10^3/uL (1.0-4.8) Monocytes # (Auto) 0.7 x10^3/uL (0.0-1.1) Eosinophils # (Auto) 0.1 x10^3/uL (0.0-0.7) Basophils # (Auto) 0.0 x10^3/uL (0.0-0.2) Sodium Level 142 mmol/L (136-145) Potassium Level 3.6 mmol/L (3.5-5.1) Chloride Level 107 mmol/L (98-107) Carbon Dioxide Level 26 mmol/L (21-32) Anion Gap 9 (6-14) Blood Urea Nitrogen 10 mg/dL (7-20) Creatinine 0.7 mg/dL (0.6-1.0) Estimated GFR (Cockcroft-Gault) 79.9 BUN/Creatinine Ratio 14 (6-20) Glucose Level 95 mg/dL (70-99) Calcium Level 8.3 mg/dL (8.5-10.1) Total Bilirubin 0.5 mg/dL (0.2-1.0) Aspartate Amino Transf (AST/SGOT) 18 U/L (15-37) Alanine Aminotransferase (ALT/SGPT) 20 U/L (14-59) Alkaline Phosphatase 43 U/L (46-116) Total Protein 6.0 g/dL (6.4-8.2) Albumin 3.0 g/dL (3.4-5.0) Albumin/Globulin Ratio 1.0 (1.0-1.7) ASSESSMENT/PLAN Assessment/Plan 1. Chest pain, atypical. AMI ruled out. EKG shows SR without any significant acute abnormalities and is unchanged from previous on 09/22/20. Suspect pain is GI in nature 2. Hypertension; controlled overall 3. Hyperlipidemia; statin 4. GERD 5. Peripheral neuropathy Recommendations PPI Will arrange outpatient echo, stress test, and follow up in our office. Supportive care REANNA HATHAWAY MD 07/22/21 1145: CARDIAC CONSULT ASSESSMENT/PLAN Assessment/Plan Patient seen and examined The patient is feeling significantly better. No chest pain. I agree with our reflesher assessment and plan. Chest pain, atypical. AMI ruled out. EKG shows SR without any significant acute abnormalities and is unchanged from previous on 09/22/20. Suspect pain is GI in nature. Continue medical treatment. Outpt work up. Hypertension; controlled overall. Continue medical treatment. Hyperlipidemia; statin GERD. PPI. Peripheral neuropathy MADDY ARNOLD APRN July 22, 2021 08:20 REANNA HATHAWAY MD July 22, 2021 17:47
[2021-07-22] MEDS ORDERED: predniSONE 5 MG TABLET PO SCH (09:00)
[2021-07-22] MEDS ORDERED: KETOTIFEN FUMARATE 0.025% OPHT SOLUTION BOTTLE. OU SCH (09:00)
[2021-07-22] MEDS ORDERED: FOLIC ACID 1 MG TABLET PO SCH (09:00)
[2021-07-22] MEDS ORDERED: LIDOCAINE (700MG/PATCH) PATCH. TP SCH (09:00)
[2021-07-22] MEDS ORDERED: ASCORBIC ACID 500 MG TABLET PO SCH (09:00)
[2021-07-22] MEDS ORDERED: METOPROLOL SUCC 24HR ER 25 MG TAB.ER.24H. PO SCH (09:00)
[2021-07-22] MEDS ORDERED: ATORVASTATIN CALCIUM 20 MG TABLET PO SCH (09:00)
[2021-07-22] MEDS ORDERED: CHOLECALCIFEROL (VITAMIN D3) 1,000 UNIT TABLET PO SCH (09:00)
[2021-07-22 11:00] VITALS: BP 120/67
[2021-07-22 15:09] VITALS: BP 114/68
--- NOTE | 2021-07-22 17:30 | NUR ---
Patient given information on cardiology appt in August. Speech consultation cancelled, patient has had extensive evaluation of swallowing issues with other providers. Peripheral IV removed.
--- NOTE | 2021-07-22 17:55 | NUR ---
Discharge information reviewed with patient. Questions about follow-up appointments answered and paperwork signed. Patient belongings confirmed to be with patient. Patient is stable, taken via wheelchair to POV driven by friend/DPOA. .
--- NOTE | 2021-07-22 18:14 | HP ---
DATE OF SERVICE: 07/22/2021 ADMIT DATE: 07/21/2021 HISTORY OF PRESENT ILLNESS: The patient is an 85-year-old Arabic [place]or[place] female patient who presented to the Emergency Room with a complaint of chest pain. She reports intermittent tightness in her central chest since Monday. No associated dizziness, diaphoresis, palpitation. The pain does not radiate, seems to be worse with lying down. She has a history of gastroesophageal reflux disease and has recently been constipated. She thinks that her pain may be related to a new constipation medicine that might get stuck in her esophagus as she has been self treating with [id number] medication from [facility]. She has never had any cardiac disease or cardiac ____ before. PAST MEDICAL HISTORY: Significant for hypertension, hyperlipidemia, chronic obstructive pulmonary disease, peripheral neuropathy, gastroesophageal reflux disease, generalized osteoarthritis, type 2 diabetes mellitus, anxiety and depression. PAST SURGICAL HISTORY: Significant for right total hip arthroplasty. FAMILY HISTORY: Significant for hypertension. SOCIAL HISTORY: She lives alone. Her adopted daughter does not live with her. She used to be an smoker, quit years ago. She does not drink alcohol or use recreational drugs. REVIEW OF SYSTEMS: As per history of present illness. MEDICATIONS: She is currently on the following medications: She is on methotrexate sodium 2.5 mg every Monday, atorvastatin calcium 20 mg at bedtime, metoprolol succinate 25 mg daily, ibuprofen 400 mg every 6 hours, gabapentin 100 mg 3 times a day, lorazepam 1 mg twice a day, calcium carbonate with vitamin D3 one tablet twice a day with meals. She is on Pataday 1 drop to both eyes daily, Colace 100 mg twice a day, famotidine 20 mg at bedtime, linaclotide 145 mcg once a day, prednisone 5 mg once a day. She is also on hydrocortisone/pramoxine apply topically twice a day. Lidoderm patch 1 patch apply topically once a day, folic acid 800 mcg once a day. Ascorbic acid 500 mg, she takes 1000 mg once a day. Cholecalciferol, vitamin D3, 25 mcg once a day. PHYSICAL EXAMINATION: GENERAL: On arrival to the Emergency Room, she looked well and was clearly in no apparent respiratory distress. She is somewhat cachectic, but there is no pallor, jaundice, cyanosis or thyromegaly. No jugular venous distention. No limb edema. VITAL SIGNS: Her heart rate was 61, blood pressure is 130/74, temperature was 97.6, respiratory rate was 18 and oxygen saturation was 94% on room air. HEAD, EYES, EARS, NOSE, AND THROAT: Normocephalic, atraumatic. NECK: Supple. HEART: Showed normal first and second heart sounds. No gallop or murmur. CHEST: Clear to auscultation, no crepitation or rhonchi. ABDOMEN: Distended, soft, nontender. NEUROLOGIC: She was grossly intact. LABORATORY WORK: On admission showed a white cell count of 8.6, hemoglobin 13.7, hematocrit 41, MCV 101 and platelet count of 171,000 with manual differential showed 87% polymorphs, 9% lymphocytes and 3% monocytes. Her chemistry showed a serum sodium 141, potassium 4, chloride 107, bicarbonate 28, anion gap of 6, BUN 9, creatinine 0.7. Estimated GFR was 80 mL per minute. Her glucose 110, calcium was 8.6. Total bilirubin, AST, ALT, alkaline phosphatase were normal. Total protein 6.4, albumin 3.5. Her troponin I high sensitivity was only 6, her coronavirus by rapid antigen testing was negative and her EKG showed that she was in sinus rhythm at a rate of 71 beats per minute with a corrected QT interval of 454. No STEMI. She was admitted to do two more sets of cardiac enzyme and to consult the Cardiology team given that she has multiple risk factors. STANTON/CAIO DR: Tanisha TID: [id number]
--- NOTE | 2021-07-23 08:03 | PN ---
SUBJECTIVE: The patient was admitted yesterday with chest pain that is somewhat atypical, and acute myocardial infarction ruled out. Her EKG showed that she was in sinus rhythm. She had 3 sets of cardiac enzymes that were normal. She was seen in consultation by the Cardiology team and the plan was for her to be discharged and to arrange for an outpatient echo and stress test and followup in their office. PHYSICAL EXAMINATION: GENERAL: When I saw her today, she looked well and was clearly in no apparent respiratory distress. No pallor, jaundice, cyanosis or thyromegaly. No jugular venous distention. No limb edema. VITAL SIGNS: Her heart rate was 73, blood pressure 114/68, temperature was 98.6, respiratory rate was 18 and oxygen saturation was 95%. HEAD, EYES, EARS, NOSE, AND THROAT: Normocephalic, atraumatic. NECK: Supple. HEART: Showed normal first and second heart sounds. No gallop or murmur. CHEST: Clear to auscultation, no crepitation or rhonchi. ABDOMEN: Distended, soft, nontender. NEUROLOGIC: She was grossly intact. LABORATORY DATA: This morning showed a white cell count of 7.2, hemoglobin 13, hematocrit 39, MCV 101 and platelet count of 162,000 with normal manual differential. Her chemistry showed a serum sodium 142, potassium 3.6, chloride 107, bicarbonate 26, anion gap of 9, BUN 10, creatinine 0.7. Estimated GFR was 80 mL per minute. Her glucose was 95, calcium was 8.3. Total bilirubin, AST, ALT, alkaline phosphatase were normal. Total protein 6, albumin 3. She had 3 sets of cardiac enzymes which ruled out myocardial infarction. ASSESSMENT AND PLAN: The patient was discharged home to continue on ascorbic acid 1000 mg once a day, atorvastatin calcium 20 mg daily, calcium carbonate with vitamin D one tablet twice a day, cholecalciferol 25 mcg once a day, Colace 100 mg twice a day, famotidine 20 mg at bedtime, folic acid 800 mcg once a day, gabapentin 100 mg 3 times a day, hydrocortisone cream apply topically twice a day, hydrocortisone pramoxine apply topically rectally twice a day, ibuprofen 400 mg every 6 hours, Lidoderm patch, 1 patch topically, on for 12 hours, off for 12 hours, linaclotide for Linzess 145 mg daily, lorazepam or Ativan 1 mg twice a day, methotrexate 2.5 mg tablet one every Monday, metoprolol succinate 25 mg daily and Paty 2.5 ml 1 drop to both eyes once a day, prednisone 5 mg daily for rheumatoid arthritis. FINAL DISCHARGE DIAGNOSES: Chest pain, acute myocardial infarction ruled out. She has had hypertension, hyperlipidemia, gastroesophageal reflux disease and type 2 diabetes, chronic constipation and rheumatoid arthritis. CAROLINE DR: Tanisha TID: [id number]
[2021-07-25] MEDS ORDERED: METHOTREXATE SODIUM 2.5 MG TABLET PO SCH (16:00)
== END 2021-07-22 17:59 | disposition home or self-care (01) ==
LOC: ER 11:55 → INTOOBSV 13:43 → ER HOLD 13:43 → 1 SOUTH 14:28
PROVIDERS: ADMIT Internal Medicine; ATTEND Internal Medicine
DX: R07.89 Other chest pain (principal); Z20.822 Contact with and (suspected) exposure to COVID-19; I10 Essential (primary) hypertension; J44.9 Chronic obstructive pulmonary disease, unspecified; K21.9 Gastro-esophageal reflux disease without esophagitis; E11.40 Type 2 diabetes mellitus with diabetic neuropathy, unspecified; E78.5 Hyperlipidemia, unspecified; M06.9 Rheumatoid arthritis, unspecified; F41.9 Anxiety disorder, unspecified; M15.9 Polyosteoarthritis, unspecified; Z90.710 Acquired absence of both cervix and uterus; Z96.641 Presence of right artificial hip joint; Z87.891 Personal history of nicotine dependence; Z79.899 Other long term (current) drug therapy; Z98.890 Other specified postprocedural states
CPT/HCPCS: 36415; 71045; 80053; 84484; 85025; 87426; 93005; 96361; 96374; 96376; 99285; G0378; J3010; J7030; J7512; U0003; G0379

== ENCOUNTER 2021-08-10 16:29 | Emergency (ER) | payer MEDICARE, OTHER ==
[~2021-08-10] VITALS: Ht 152.4 cm; Wt 47.0 kg
[~2021-08-10 16:29] MED LIST changes: +ASCO500C9 PO; +ATOR20TA PO; +CALC-56 PO; +CHOL100014 PO; +DOCU-109 PO; +FAMO-63 PO; +FOLI0.8C PO; +FOLI0.8T5 PO; +GABA-585 PO; +HYDR30CR33 RC; +IBUP-1673 PO; -IOHEXOL 240 MG/ML 50ML VIAL. PO ONE; +LIDO700A21 TP; +LINA145C PO; +LORA-254 PO; +METH2.5T PO; +METO25TA2 PO; +OLOP2.5D12 EACHEYE; +PRED2.5T PO; +PRED5TAB PO; +[UNRECOGNIZED DRUG - CODE] TP
--- NOTE | 2021-08-10 16:39 | PHYS DOC ---
Past History Past Medical History: Anxiety, Arthritis, Diabetes Additional Past Medical Histor: NEUROPATHY Past Surgical History: Hip Replacement, Hysterectomy, Oophorectomy, Other Additional Past Surgical Histo: RECTAL SURGERIES, NON CANCEROUS TUMOR BEHIND LEFT EYE Alcohol Use: None General Adult EDM: Chief Complaint: CHEST PAIN HPI: HPI: Patient is an 84-year-old female who presents for evaluation of an episode of chest pain that occurred at 3:00 this morning. She had presented to her primary care physician's office for follow-up of a recent admission for chest pain. During her admission she was ruled out for acute TX, with serial troponins. She has a scheduled follow-up appointment with cardiology. The patient has no chest pain at present. She reports that the episode lasted several minutes at 3:00 this morning, she describes some mild shortness of breath. She has had a cough "for a while" the cough is dry, denies purulent sputum production hemoptysis. Denies fevers or chills. Her primary care physician ordered an EKG and a rapid flu and rapid COVID test, rapid flu and COVID were negative. Her primary care physician was worried about QRS complex changes in lead III. The patient reports that she has had a headache and dizziness for quite some time, her friend corroborates this and reports that this has been ongoing for quite some time, unchanged today. Her friend who accompanies her also reports that the patient has had a dry cough for quite some time. She has not noticed any significant changes, though she does report that the patient did seem to be coughing more frequently in her doctor's office than she is currently. The patient denies lower extremity pain or swelling. Denies syncope or near syncope. She has been eating and drinking well, denies abdominal pain, nausea, vomiting. Review of Systems: Review of Systems: Constitutional: Denies fever or chills HENT: Denies nasal congestion or sore throat Respiratory: Chronic, dry cough. She reports 1 episode of shortness of breath with chest discomfort at 3:00 this morning, denies current shortness of breath Cardiovascular: 1 episode of shortness of breath at 3:00 this morning, denies peripheral edema or palpitations. GI: Denies abdominal pain, nausea, vomiting : Denies urinary symptoms Musculoskeletal: Denies back pain or joint pain Integument: Denies rash Neurologic: Denies headache, focal weakness or sensory changes, denies syncope Psychiatric: She admits to having some chronic sadness and depression symptoms, denies suicidal ideation Allergies: Allergies: Allergies Coded Allergies Type Severity Reaction Last Updated Verified Penicillins Allergy Unknown 07/21/21 Yes aspirin Allergy Unknown 07/22/21 Yes codeine Allergy Unknown Rash 07/21/21 Yes Physical Exam: PE: Constitutional: Well developed, well nourished, no acute distress, non-toxic appearance. [] HENT: Normocephalic, atraumatic Eyes: Conjunctiva normal, no discharge. [] Neck: Normal range of motion, no tenderness, supple, no stridor. Trachea is midline. No JVD. Cardiovascular:Heart rate regular rhythm, +2 radial and +2 PT pulses bilaterally Lungs & Thorax: Bilateral breath sounds clear to auscultation, no rales, rhonchi or wheezing. No respiratory distress. Abdomen: Abdomen is soft, nondistended, nontender to palpation. No palpable mass organomegaly. No palpable pulsatile mass Skin: Warm, dry, no erythema, no rash. No jaundice. Back: No tenderness, no CVA tenderness. [] Extremities: No tenderness, no cyanosis, no clubbing, ROM intact, no edema. No calf tenderness. Neurologic: Alert and oriented X 3, normal motor function, normal sensory function, no focal deficits noted. [] Psychologic: Affect normal, judgement normal, mood normal. She is jovial, smiling and cooperative. EKG: EKG: EKG is interpreted at 1446 Rhythm is sinus Rate is 61 bpm [place] is normal Low voltage No STEMI Radiology/Procedures: Radiology/Procedures: IMAGING REPORT Signed PATIENT: YOLI JOHNSON ACCOUNT: [id number] : 1935 LOCATION: ER AGE: 85 SEX: F EXAM STATUS: REG ER ORD. PHYSICIAN: LUIS ARMANDO EDUARDO DO REASON: cough, chest pain PROCEDURE: PORTABLE CHEST 1V Chest AP portable at 1651:: Reason for examination: Chest pain and cough. Comparison is made to previous study dated 07/21/2021. The heart size is normal. Mediastinum is unremarkable. Lung flores again show slight in creased in the interstitial markings at the lung bases which is stable. No acute infiltrates or pleural effusions are seen. No acute bony abnormalities are seen. Impression: No acute cardiopulmonary disease. Electronically signed by: Skyla Smith MD (08/10/2021 5:06 PM) [facility] DICTATED AND SIGNED BY: SKYLA SMITH MD DATE: 08/10/211703 CC: LUIS ARMANDO EDUARDO DO; JANEE ALBRIGHT ~ Heart Score: C/O Chest Pain: Yes HEART Score for Chest Pain: HEART Score for Chest Pain Response (Comments) Value History Moderately Suspicious 1 ECG Nonspecific Repolarizatio 1 Age > 65 2 Risk Factors 1 or 2 Risk Factors 1 Total 5 Risk Factors: Risk Factors: DM, Current or recent (<one month) smoker, HTN, HLP, family history of CAD, obesity. Risk Scores: Score 0 - 3: 2.5% MACE over next 6 weeks - Discharge Home Score 4 - 6: 20.3% MACE over next 6 weeks - Admit for Clinical Observation Score 7 - 10: 72.7% MACE over next 6 weeks - Early Invasive Strategies Course & Med Decision Making: Course & Med Decision Making Pertinent Labs and Imaging studies reviewed. (See chart for details) The patient has had no return of any chest pain here in the ER. EKG is nonischemic, troponin is negative. She has not had any chest pain since 3:00 this morning. She is recently had an inpatient work-up for chest pain, she has scheduled outpatient cardiology follow-up. I told her to keep her scheduled robel ointments. I have discussed the findings, differential diagnosis and plan of care with the patient. She appears stable for discharge home. Return precautions are given Dragon Disclaimer: Dragyamil Disclaimer: This electronic medical record was generated, in whole or in part, using a voice recognition dictation system. Departure Departure: Impression: Primary Impression: Chest pain Qualified Codes: R07.9 - Chest pain, unspecified Disposition: HOME / SELF CARE / HOMELESS Condition: STABLE Referrals: JANEE ALBRIGHT (PCP) Patient Instructions: Chest Pain (Nonspecific) Additional Instructions: Return to the ER for more severe pain, shortness of breath, vomiting, dizziness, weakness or any other concerns. Keep your scheduled appointment with your demo specialist, keep any scheduled appointments with your primary care physician as well LUIS ARMANDO EDUARDO DO August 10, 2021 16:38
--- NOTE | 2021-08-10 17:08 | RAD ---
Chest AP portable at 1651:: Reason for examination: Chest pain and cough. Comparison is made to previous study dated 07/21/2021. The heart size is normal. Mediastinum is unremarkable. Lung flores again show slight in creased in th e interstitial markings at the lung bases which is stable. No acute infiltrates or pleural effusions are seen. No acute bony abnormalities are seen. Impression: No acute cardiopulmonary disease. Electronically signed by: Skyla Ying MD (08/10/2021 5:06 PM) [facility]
[2021-08-10 17:43] LABS: BASO % 1 % (0-3); EOS % 0 % (0-3); HEMATOCRIT 44.4 % (36.0-47.0); HEMOGLOBIN 14.7 g/dL (12.0-15.5); LYMPH # 1.3 x10^3/uL (1.0-4.8); LYMPH % 16 % (24-48); MEAN CORPUSCULAR HEMOGLOBIN 33 pg (25-35); MEAN CORPUSCULAR HGB CONC 33 g/dL (31-37); MEAN CORPUSCULAR VOLUME 101 fL (79-100); MONO # 0.4 x10^3/uL (0.0-1.1); MONO % 5 % (0-9); NEUT # 6.2 x10^3uL (1.8-7.7); NEUT % 78 % (31-73); PLATELET COUNT 187 x10^3/uL (140-400); RED BLOOD COUNT 4.42 x10^6/uL (3.50-5.40); RED CELL DISTRIBUTION WIDTH 14.8 % (11.5-14.5); WHITE BLOOD COUNT 7.9 x10^3/uL (4.0-11.0)
[2021-08-10 17:59] LABS: CALCIUM 9.5 mg/dL (8.5-10.1); CREATININE 0.7 mg/dL (0.6-1.0); GFR 79.9; POTASSIUM 4.2 mmol/L (3.5-5.1)
[2021-08-10 18:11] VITALS: BP 158/81
== END 2021-08-10 18:30 | disposition home or self-care (01) ==
LOC: ER 16:29
DX: R07.89 Other chest pain (principal); R51.9 Headache, unspecified; R42 Dizziness and giddiness; F41.9 Anxiety disorder, unspecified; M19.90 Unspecified osteoarthritis, unspecified site; E11.40 Type 2 diabetes mellitus with diabetic neuropathy, unspecified; Z88.0 Allergy status to penicillin; Z88.5 Allergy status to narcotic agent; Z88.6 Allergy status to analgesic agent
CPT/HCPCS: 36415; 71045; 80048; 84484; 85025; 93005; 99285